=== PATIENT | female | born 1990 | race Two or more races ===

== ENCOUNTER 2017-09-01 16:39 | Emergency (ER) | payer MEDICAID, OTHER ==
[~2017-09-01] VITALS: Ht 167.6 cm; Wt 102.1 kg
[2017-09-01] MEDS ORDERED: PANTOPRAZOLE 40 MG/10 ML VIAL IV STA (18:22)
[2017-09-01] MEDS ORDERED: SODIUM CHLORIDE 0.9% 500 ML IVB ONE (18:22)
[2017-09-01 18:28] LABS: Urine Bacteria NONE SEEN /hpf (None Seen); Urine Blood Negative /uL (Negative); Urine Mucus FEW (None Seen); Urine Specific Gravity 1.032 (1.001-1.035); Urine WBC 1 /hpf (0 - 5)
[2017-09-01] MEDS ORDERED: ONDANSETRON HCL 4 MG/2 ML VIAL IV ONE (18:30)
[2017-09-01] MEDS ORDERED: KETOROLAC TROMETH 30 MG/ML 1ML VIAL IV ONE (18:30)
[2017-09-01 18:35] LABS: Eosinophils # (auto) 0 uL; Hemoglobin 13.5 g/dL (12.2-16.2); Mean Corpuscular Volume 79.8 fL (80.0-100.0); Monocytes # (auto) 0.6 uL; Nucleated Red Blood Cells % 0.1 %
[2017-09-01 18:36] LABS: Basophils # (auto) 0.1 uL; Basophils % (auto) 0.6 % (0.0-2.0); Eosinophils % (auto) 0.6 % (0.0-7.0); Hematocrit 41.3 % (36.0-46.0); Lymphocytes # (auto) 1.9 uL; Mean Corpuscular Hemoglobin 26.1 pg (28.0-32.0); Mean Corpuscular Hgb Conc. 32.7 g/dL (32.0-36.0); Monocytes % (auto) 7.6 % (0.0-12.0); Neutrophils # (auto) 5.7 uL; Neutrophils % (auto) 68.2 % (37.0-80.0); Platelet Count (auto) 326 10^3/uL (140-450); Red Blood Cells 5.18 10^6/uL (4.0-5.20); Red Cell Distribution Width 15.3 % (11.8-14.3); White Blood Cell 8.4 10^3/uL (4.4-10.8)
[2017-09-01 18:51] LABS: Albumin 3.5 g/dL (3.4-5.0); BUN/Creatinine Ratio 11.8; Calcium 8.4 mg/dL (8.5-10.1); Potassium 3.6 mmol/L (3.5-5.1)
[2017-09-01 19:08] LABS: Bilirubin, Total 0.9 mg/dL (0.2-1.0); Total Protein 7.5 g/dL (6.4-8.2)
[2017-09-01] MEDS ORDERED: ACETAMINOPHEN 500 MG TAB PO PRN (21:45)
[2017-09-01] MEDS ORDERED: HYDROcodone-ACET 5/325MG TAB PO PRN (21:45)
[2017-09-01] MEDS ORDERED: MEPERIDINE HCL (25 MG/ML) 1ML VIAL IV PRN (21:45)
[2017-09-01] MEDS ORDERED: ONDANSETRON HCL 4 MG/2 ML VIAL IV PRN (21:45)
[2017-09-01 22:26] VITALS: BP 115/79
[2017-09-01] MEDS ORDERED: EPINEPHrine HCL 250 ML IV ONE (23:01)
== END 2017-09-01 22:49 | disposition left against medical advice (07) ==
LOC: ER 16:39 → OVERFLOW 16:40 → UNDOADMIN 16:40 → ER 22:49
DX: K80.20 Calculus of gallbladder without cholecystitis without obstruction (principal)
CPT/HCPCS: 36415; 76705; 80053; 81001; 81025; 83690; 85025; 94761; 96361; 96374; 96375; 99285; C9113; J0171; J1885; J2405; J7040

== ENCOUNTER 2017-09-02 17:50 | Inpatient (IN) | payer MEDICAID ==
[~2017-09-02] VITALS: Ht 167.6 cm; Wt 103.4 kg
[2017-09-02] MEDS ORDERED: SODIUM CHLORIDE 0.9% 500 ML IVB ONE (20:33)
[2017-09-02] MEDS ORDERED: PANTOPRAZOLE 40 MG/10 ML VIAL IV STA (20:33)
[2017-09-02] MEDS ORDERED: ONDANSETRON HCL 4 MG/2 ML VIAL IV ONE (20:45)
[2017-09-02 21:41] LABS: Basophils # (auto) 0 uL; Basophils % (auto) 0.4 % (0.0-2.0); Eosinophils # (auto) 0.1 uL; Eosinophils % (auto) 1.6 % (0.0-7.0); Hemoglobin 13.3 g/dL (12.2-16.2); Lymphocytes # (auto) 2.6 uL; Neutrophils # (auto) 4.6 uL; White Blood Cell 7.9 10^3/uL (4.4-10.8)
[2017-09-02 21:43] LABS: Hematocrit 41.1 % (36.0-46.0); Lymphocytes % (auto) 32.9 % (10.0-50.0); Mean Corpuscular Hgb Conc. 32.3 g/dL (32.0-36.0); Mean Corpuscular Volume 80.6 fL (80.0-100.0); Monocytes # (auto) 0.6 uL; Monocytes % (auto) 7.3 % (0.0-12.0); Neutrophils % (auto) 57.8 % (37.0-80.0); Platelet Count (auto) 316 10^3/uL (140-450); Red Cell Distribution Width 15.3 % (11.8-14.3)
[2017-09-02 21:56] LABS: Albumin 3.5 g/dL (3.4-5.0); BUN/Creatinine Ratio 19.5; Calcium 8.5 mg/dL (8.5-10.1); Potassium 3.8 mmol/L (3.5-5.1)
[2017-09-02 21:58] LABS: Bilirubin, Total 0.3 mg/dL (0.2-1.0); Total Protein 7.7 g/dL (6.4-8.2)
[2017-09-02] MEDS ORDERED: ONDANSETRON HCL 4 MG/2 ML VIAL IV PRN (22:45)
[2017-09-02] MEDS ORDERED: ACETAMINOPHEN 500 MG TAB PO PRN (22:45)
[2017-09-02] MEDS: SODIUM CHLORIDE 0.9% 1,000 ML IV SCH (23:01)
[2017-09-03] VITALS: BP 120/80
[2017-09-03] MEDS: SODIUM CHLORIDE 0.9% 1,000 ML IV SCH ×2 (05:09→23:00)
[2017-09-03 05:41] VITALS: BP 105/64
[2017-09-03 06:14] LABS: Basophils # (auto) 0 uL; Basophils % (auto) 0.4 % (0.0-2.0); Eosinophils # (auto) 0.2 uL; Eosinophils % (auto) 2.2 % (0.0-7.0); Hematocrit 37.5 % (36.0-46.0); Hemoglobin 12.3 g/dL (12.2-16.2); Lymphocytes # (auto) 3.1 uL; Lymphocytes % (auto) 42.3 % (10.0-50.0); Mean Corpuscular Hemoglobin 26.2 pg (28.0-32.0); Mean Corpuscular Hgb Conc. 32.9 g/dL (32.0-36.0); Mean Corpuscular Volume 79.7 fL (80.0-100.0); Monocytes # (auto) 0.7 uL; Monocytes % (auto) 9.3 % (0.0-12.0); Neutrophils # (auto) 3.3 uL; Neutrophils % (auto) 45.8 % (37.0-80.0); Nucleated Red Blood Cells % 0.1 %; Platelet Count (auto) 263 10^3/uL (140-450); Red Blood Cells 4.71 10^6/uL (4.0-5.20); Red Cell Distribution Width 15.3 % (11.8-14.3); White Blood Cell 7.3 10^3/uL (4.4-10.8)
[2017-09-03 06:23] LABS: Calcium 8.1 mg/dL (8.5-10.1); Potassium 3.5 mmol/L (3.5-5.1)
[2017-09-03 09:00] VITALS: BP 124/67
[2017-09-03 13:00] VITALS: BP 126/85
[2017-09-03 17:00] VITALS: BP 127/75
[2017-09-03 22:00] VITALS: BP 112/71
[2017-09-04 05:00] VITALS: BP 97/58
[2017-09-04 09:00] VITALS: BP 113/64
[2017-09-04] MEDS: SODIUM CHLORIDE 0.9% 1,000 ML IV SCH ×2 (11:19→14:45)
[2017-09-04 12:30] VITALS: BP 113/79
[2017-09-04 16:39] VITALS: BP 110/77
[2017-09-04 17:07] LABS: INR 0.98 (0.9-1.15); Partial Thromboplastin Time 31.2 sec (23.78-33.04); Prothrombin Time 10.5 sec (9.27-12.13)
[2017-09-04 22:00] VITALS: BP 118/77
[2017-09-05 05:36] VITALS: BP 96/55
[2017-09-05] MEDS: SODIUM CHLORIDE 0.9% 1,000 ML IV SCH ×3 (06:17→20:50)
[2017-09-05] MEDS ORDERED: LIDOCAINE HCL 2 %PF INJ 10ML AMP IJ ONE (07:56)
[2017-09-05] MEDS ORDERED: PROPOFOL 10 MG/ML 20 ML IV ONE (07:56)
[2017-09-05] MEDS ORDERED: MIDAZOLAM HCL 1MG/1ML-2 ML VIAL ONE (07:56)
[2017-09-05] MEDS ORDERED: ROCURONIUM 10MG/ML 10ML VIAL IV ONE (07:56)
[2017-09-05] MEDS ORDERED: ceFAZolin 1GM/100ML 50 ML IV ONE (08:29)
[2017-09-05] MEDS ORDERED: POVIDONE IODINE 10 % TOPICAL OINT 30GM TOP ONE (08:32)
[2017-09-05] MEDS ORDERED: SUCCINYLCHOLINE CHLORIDE 20 MG/ML 10ML VIAL IV ONE (08:48)
[2017-09-05 09:00] VITALS: BP 125/75
[2017-09-05] MEDS ORDERED: fentaNYL CITRATE 100 MCG/2 ML VL ONE ×2 (09:08→10:26)
[2017-09-05] MEDS ORDERED: KETOROLAC TROMETH 30 MG/ML 1ML VIAL ONE (09:08)
[2017-09-05] MEDS ORDERED: NALOXONE HCL 0.4 MG/ML VIAL IV PRN (09:30)
[2017-09-05] MEDS ORDERED: ONDANSETRON HCL 4 MG/2 ML VIAL IV ONE (09:30)
[2017-09-05] MEDS ORDERED: fentaNYL CITRATE 100 MCG/2 ML VL IV ONE (10:00)
[2017-09-05] MEDS ORDERED: NEOSTIGMINE 1 MG/ML INJ (10mg/10ML VIAL) ONE (10:05)
[2017-09-05] MEDS ORDERED: GLYCOPYRROLATE 0.2 MG/ML 1ML VIAL ONE (10:05)
[2017-09-05 12:25] LABS: Basophils # (auto) 0 uL; Basophils % (auto) 0.2 % (0.0-2.0); Eosinophils # (auto) 0 uL; Eosinophils % (auto) 0.1 % (0.0-7.0); Hematocrit 38.6 % (36.0-46.0); Hemoglobin 12.3 g/dL (12.2-16.2); Lymphocytes # (auto) 1.2 uL; Mean Corpuscular Hgb Conc. 31.9 g/dL (32.0-36.0); Monocytes # (auto) 0.7 uL
[2017-09-05 12:26] LABS: Lymphocytes % (auto) 8.5 % (10.0-50.0); Mean Corpuscular Hemoglobin 25.6 pg (28.0-32.0); Mean Corpuscular Volume 80.4 fL (80.0-100.0); Monocytes % (auto) 4.9 % (0.0-12.0); Neutrophils # (auto) 12.5 uL; Neutrophils % (auto) 86.3 % (37.0-80.0); Platelet Count (auto) 275 10^3/uL (140-450); Red Blood Cells 4.81 10^6/uL (4.0-5.20); White Blood Cell 14.4 10^3/uL (4.4-10.8)
[2017-09-05] MEDS ORDERED: MORPHINE SULFATE 8mg/ml INJ SDV IV PRN (14:15)
[2017-09-05] MEDS ORDERED: KETOROLAC TROMETH 30 MG/ML 1ML VIAL IV PRN (15:00)
[2017-09-05 17:00] VITALS: BP 117/63
[2017-09-05] MEDS: HYDROcodone-ACET 5/325MG TAB PO PRN ×2 (17:12→22:46)
[2017-09-05 20:00] VITALS: BP 116/74
[2017-09-06] MEDS: HYDROcodone-ACET 5/325MG TAB PO PRN (05:06)
[2017-09-06 05:42] VITALS: BP 105/64
[2017-09-06] MEDS: SODIUM CHLORIDE 0.9% 1,000 ML IV SCH (06:45)
[2017-09-06 08:32] VITALS: BP 114/67
[2017-09-06 08:58] LABS: Basophils # (auto) 0 uL; Eosinophils # (auto) 0 uL; Hemoglobin 11.9 g/dL (12.2-16.2); Lymphocytes # (auto) 2.4 uL; Monocytes # (auto) 0.8 uL; White Blood Cell 8.4 10^3/uL (4.4-10.8)
[2017-09-06 08:59] LABS: Basophils % (auto) 0.5 % (0.0-2.0); Eosinophils % (auto) 0.4 % (0.0-7.0); Hematocrit 36.2 % (36.0-46.0); Lymphocytes % (auto) 28.3 % (10.0-50.0); Mean Corpuscular Hemoglobin 26.2 pg (28.0-32.0); Mean Corpuscular Hgb Conc. 32.9 g/dL (32.0-36.0); Mean Corpuscular Volume 79.6 fL (80.0-100.0); Monocytes % (auto) 9.3 % (0.0-12.0); Neutrophils # (auto) 5.2 uL; Neutrophils % (auto) 61.5 % (37.0-80.0); Platelet Count (auto) 278 10^3/uL (140-450); Red Blood Cells 4.54 10^6/uL (4.0-5.20)
[2017-09-06 11:34] VITALS: BP 128/73
== END 2017-09-06 15:10 | disposition home or self-care (01) | DRG 263 ==
LOC: ER 17:57 → OVERFLOW 17:58 → CENTRAL 23:15
PROVIDERS: ADMIT Nurse Practitioner Family; ATTEND Internal Medicine Pulmonary Disease
PROC: 0FT44ZZ Resection of Gallbladder, Percutaneous Endoscopic Approach (ICD-10-PCS; principal; 2017-09-05 08:58)
DX: K80.00 Calculus of gallbladder with acute cholecystitis without obstruction (principal); E66.01 Morbid (severe) obesity due to excess calories; K76.0 Fatty (change of) liver, not elsewhere classified; Z83.3 Family history of diabetes mellitus; Z68.36 Body mass index [BMI] 36.0-36.9, adult
CPT/HCPCS: 36415; 74181; 80048; 80053; 82150; 82247; 83690; 84702; 85025; 85610; 85730; 86850; 86900; 86901; 94761; 96374; C9113; J0330; J0690; J1885; J2250; J2405; J2704